=== PATIENT | female | born 1935 | race Caucasian/White ===

== ENCOUNTER 2020-07-29 13:27 | Emergency (ER) | payer MEDICARE, OTHER ==
--- OUTSIDE RECORDS SUMMARY | 2020-07-29 13:30 | EXTERNAL MEDICAL SUMMARY RPT | Continuity of Care Document ---
:1935 Demographics Phone Unavailable Preferred Language Unknown Marital Status Unknown Yarsani Affiliation Unknown Race Unknown Ethnic Group Unknown Author Organization [facility] Address [address] [phone] Phone Care Team Providers Name Role Phone Registrar Unavailable Unavailable Medications date description facility 20200729 [facility] All [id number] LISIN[facility] All 20200729 LISINOPRIL [facility]S All 20200729 [facility] All Problems date description facility 20200729 Tobacco smoking status [facility] All 20200729 Shortness of breath All 20200729 Persons encountering health services in other specified All circumstances 20200729 No current problems or disability - unk nown All 20200729 Never smoker All 20200729 Left against medical advice All [id number] Dyspnea All 20200729 Details of drug misuse behavior All 20200729 Cough All 20200729 Chronic cough All [id number] CHEST 2 VIEW All 20200729 Alcohol use All [id number] Alcohol intake All Vital Signs date measurement value source 20200729 weight_standard 140 lb 20200729 weight_metric 63.5 kg 20200729 temperature_standard 98 F 20200729 temperature_metric 36.67 C 20200729 respiration_rate 14 /min 20200729 height_standard 60 in 20200729 height_metric 152.4 cm 20200729 heart_rate 88 /min 20200729 BP_systolic 165 mm[Hg] 20200729 BP_diastolic 117 mm[Hg] 20200729 BMI 27.44 kg/m2
[2020-07-29 13:35] VITALS: BP 165/80
[2020-07-29] MEDS ORDERED: ALBUTEROL 1 PUFF INH STA (13:54)
--- NOTE | 2020-07-29 13:59 | ED Physician Documentation ---
History of Present Illness - Stated complaint Stated Complaint: SOA/COUGH - Chief complaint Chief Complaint: Resp - History obtained from History obtained from: Patient - History of Present Illness Timing: Today Pain level max: 0 Pain level now: 0 - Additonal information Additional information: 85-year-old female presents to the emergency department with a cough for the past 2 to 3 months. Described as dry in nature. She relates that this started after receiving her second moderna vaccine. She is on lisinopril as well. She states she has been on this for several years. She states she has occasional wheezing as well. No history of asthma or COPD. Does not smoke. She was seen at the walk-in clinic today because she was told that before she saw her regular doctor they needed a negative Covid test. When she was at the walk-in clinic reportedly her O2 sat was 85 on room air. They sent her here for further evaluation. Patient does not have a history of oxygen use or hypoxia. Not hypoxic here. Review of Systems Ten Systems: 10 systems reviewed and negative Constitutional: denies: Fever, Chills Throat: denies: Sore throat Cardiac: denies: Chest pain / pressure, Palpitations Respiratory: reports: Cough, Wheezing GI: denies: Vomiting, Diarrhea Skin: denies: Rash Musculoskeletal: denies: Neck pain, Back pain Neurologic: denies: Headache PD PAST MEDICAL HISTORY - Past Medical History Cardiovascular: Hypertension - Past Surgical History Past Surgical History: Yes Ortho: Carpal Tunnel surgery - Present Medications Home Medications: Ambulatory Orders Medication Instructions Recorded Confirmed lisinopriL [Lisinopril] 10 mg PO DAILY 09/29/14 07/29/20 Albuterol Sulfate [Proair Hfa 1 - 2 puffs INH Q4H PRN #1 inhaler 07/29/20 Inhaler] - Allergies Allergies/Adverse Reactions: Allergies Allergy/AdvReac Type Severity Reaction Status Date / Time No Known Drug Allergies Allergy Verified 07/29/20 13:31 - Social History Does the pt smoke?: No Smoking Status: Never smoker Does the pt drink ETOH?: No Does the pt have substance abuse?: No - Immunizations Immunizations are current?: Yes PD ED PE NORMAL - Vitals Vital signs reviewed: Yes - General General: Alert and oriented X 3, No acute distress, Well developed/nourished - HEENT HEENT: PERRL, Moist mucous membranes - Neck Neck: Supple, no meningeal sign - Cardiac Cardiac: RRR, Strong equal pulses - Respiratory Respiratory: No respiratory distress, Other (Mild wheezing bilaterally) - Abdomen Abdomen: Soft, Non tender, Non distended - Derm Derm: Warm and dry - Extremities Extremities: No edema, No calf tenderness / cord - Neuro Neuro: Alert and oriented X 3 - Psych Psych: Normal mood, Normal affect Results - Vitals Vitals: Vital Signs - 24 hr 07/29/20 07/29/20 13:31 14:05 Temperature 36.6 C Heart Rate 100 100 Respiratory 18 18 Rate Blood Pressure 165/80 H O2 Saturation 99 Oxygen O2 Source Room air - Rads (name of study) Chest x-ray Radiology: Prelim report reviewed, EMP read contemporaneously, See rad report (no acute disease) PD MEDICAL DECISION MAKING - ED course Complexity details: reviewed results, re-evaluated patient, considered differential, d/w patient ED course: 85-year-old female presents with a cough for the past several months. Dry, intermittent. No fevers. No evidence of pneumonia. She states that her seasonal allergies have been worse than usual this year. She is taking Zyrtec daily as well as Benadryl. Recently started on eyedrops for allergies as well. Does have mild wheeze, feels better after albuterol. Will prescribe this for home. We will have her follow-up with her doctor for further care. Patient counseled regarding signs and symptoms for which I believe and urgent re- evaluation would be necessary. Patient with good understanding of and agreement to plan and is comfortable going home at this time This document was made in part using voice recognition software. While efforts are made to proofread this document, sound alike and grammatical errors may occur. Departure - Departure Disposition: Home, Self Care Clinical Impression: Wheezing, Cough Condition: Good Instructions: ED Cough Chronic Cause Unkn Follow-Up: your,doctor in 1 week [Other] Prescriptions: Albuterol Sulfate [Proair Hfa Inhaler] 1 - 2 puffs INH Q4H PRN #1 inhaler PRN Reason: Shortness Of Air/Wheezing Comments: Your x-ray does not show any acute abnormalities. Follow-up with your doctor for further care. We will trial you on an inhaler as this could be due to your allergies.
--- OUTSIDE RECORDS SUMMARY | 2020-07-29 13:59 | EXTERNAL MEDICAL SUMMARY RPT | Continuity of Care Document ---
:1935 Demographics Phone Unavailable Preferred Language Unknown Marital Status Unknown Taoism Affiliation Unknown Race Unknown Ethnic Group Unknown Author Organization [facility] Address [address] [phone] Phone Care Team Providers Name Role Phone Registrar, Majo Palafox Patient Unavailable Unavailab le Business Analytics Intern, [place] Zuluaga,Medical Unavailable Unava ilable Medications date description facility 20200729 CETIRIZINE [facility]CL TABS All 20200729 LISINOPRIL TABS All 20200729 LISINOPRIL TABS All 20200729 CETIRIZINE [facility]CL TAB[facility] All 20200729 CETIRIZINE [facility]CL TAB[facility] All 20200729 LISINOPRIL TABS All 20200729 LISINOPRIL TABS All 20200729 CETIRIZINE [facility]CL TAB[facility] All Problems date description facility 20200729 Tobacco smoking status [facility] All 20200729 Shortness of breath All 20200729 Persons encountering health services in other specified All circumstances 20200729 Left against medical advice All 20200729 Dyspnea All 20200729 Alcohol use All 20200729 No current problems or disability - unk nown All 20200729 Never smoker All 20200729 Details of drug misuse behavior All 20200729 Cough All 20200729 Chronic cough All 20200729 CHEST 2 VIEW All 20200729 Alcohol intake All Vital Signs date measurement value source 20200729 weight_standard 140 lb [id number] weight_metric 63.5 kg 20200729 temperature_standard 98 F 20200729 temperature_metric 36.67 C 20200729 respiration_rate 14 /min 20200729 height_standard 60 in 20200729 height_metric 152.4 cm 20200729 heart_rate 88 /min 20200729 BP_systolic 165 mm[Hg] [id number] BP_diastolic 117 mm[Hg] 20200729 BMI 27.44 kg/m2 20200729 weight_standard 140 lb 20200729 weight_metric 63.5 kg 20200729 temperature_standard 98 F 20200729 temperature_metric 36.67 C 20200729 respiration_rate 14 /min 20200729 height_standard 60 in 20200729 height_metric 152.4 cm 20200729 heart_rate 88 /min 20200729 BP_systolic 165 mm[Hg] [id number] BP_diastolic 117 mm[Hg] 20200729 BMI 27.44 kg/m2
--- NOTE | 2020-07-29 14:16 | XRAY Report ---
PROCEDURE: Chest 2 View X-Ray INDICATIONS: cough x2 months TECHNIQUE: 2 view(s) of the chest. COMPARISON: None. FINDINGS: Surgical changes and devices: None. Lungs and pleura: No pleural effusions or pneumothorax. Lungs are clear. Mediastinum: Mediastinal contours are normal. Heart size is mildly enlarged. Bones and chest wall: No suspicious bony abnormalities. Soft tissues appear unremarkable. IMPRESSION: No acute cardiopulmonary pathology. Reviewed by: Amish Valdes MD on 07/29/2020 2:14 PM PDT Approved by: Amish Valdes MD on 07/29/2020 2:14 PM PDT Station ID: [id number]
== END 2020-07-29 14:36 | disposition home or self-care (01) ==
LOC: ED 13:27
DX: R05 Cough (principal); R06.2 Wheezing; I10 Essential (primary) hypertension
CPT/HCPCS: 71046; 94640; 94664; 99283; 99284; U0004